=== PATIENT | male | born 1995 | race Caucasian/White ===

== ENCOUNTER 2016-06-01 23:55 | Emergency (ER) | payer OTHER ==
[2016-06-02 00:04] VITALS: BP 106/67; PULSE 89; RESP 14; TEMP 97.3; O2SAT 99
--- NOTE | 2016-06-02 00:16 | EDPHY ---
H & P Time Seen by Provider: 06/02/16 00:07 HPI/ROS: This is a 20-year-old male brought in by ambulance, EMS reports patient was found in the bathroom passed out after partying with friends. ETOH, and Xanax involved. EMS also reports patient was arousable with verbal stimuli no injuries noted. REVIEW OF SYSTEMS: At this time unable to review systems due to patient altered mental status due to alcohol intoxication Smoking Status: Never smoked Physical Exam: CONSTITUTIONAL: patient appeared well nourished, non-ill appearing and normally developed. No acute distress. Vital signs as documented. HEENT: Normocephalic atraumatic PERRLA NECK: FROM without pain RESP: Non-labored resp effort, airway patent, CTAB CARDIAC: RRR w/o murmur, ruth. Normal S1/S2 GI: Abd soft NTTP, no abrasions or ecchymoses noted NEURO: Awaken with verbal stimuli, oriented to person then falls back sleep EXTREMITIES: FROM Without difficulty SKIN: Warm and dry. No lacerations or abrasions noted Constitutional: Initial Vital Signs Temperature (C) 36.3 C 06/02/16 00:01 Heart Rate 89 06/02/16 00:01 Respiratory Rate 14 06/02/16 00:01 Blood Pressure 106/67 06/02/16 00:01 O2 Sat (%) 99 06/02/16 00:01 O2 Delivery Mode Room Air Allergies/Adverse Reactions: No Known Allergies Allergy (Unverified 06/02/16 00:01) Home Medications: Medication Instructions Recorded NK [No Known Home Meds] 06/02/16 Medical Decision Making ED Course/Re-evaluation: ED plan care: Patient placed on cardiac cath tech [id number]: Patient awake oriented x3, ambulatory with that gait disturbance. Patient calling sober ride. Discharge home---> stable, discussed discharge instructions Differential Diagnosis: Differential diagnosis considered but not limited to overdose, altered mental status due to head injury, alcohol withdrawal Departure - Departure Disposition: Home, Routine, Self-Care Clinical Impression: Alcohol intoxication Qualifiers: Complication of substance-induced condition: uncomplicated Qualified Code(s): F10.120 - Alcohol abuse with intoxication, uncomplicated Condition: Good Instructions: Alcohol Intoxication (ED), Abuse of Alcohol (ED) Additional Instructions: 1. Stop drinking, stop using prescription drugs that are not yours 2. Increase fluid intake, you can take ibuprofen or Tylenol as needed 3. Follow-up at [facility] Referrals: Patient,NotPresent [Primary Care Provider] - As per Instructions KO[facility],. [Clinic] - As per Instructions
== END 2016-06-02 03:21 | disposition home or self-care (01) ==
DX: F10.120 Alcohol abuse with intoxication, uncomplicated (principal)